=== PATIENT | female | born 1980 | race Caucasian/White ===

== ENCOUNTER → 2018-04-08 | Outpatient (CLI) | payer OTHER ==
[~2018-04-08] MED LIST: ACET-1718 PO; FLU150 PO; FLUC150T40 PO; IBU600 PO; IBU800 PO; IBUP800T37 PO; MET2 PO; PREN-67 PO; PREN-85 PO
[2018-04-08 08:53] LABS: LDL CHOLESTEROL 91 mg/dl
== END ==
LOC: LAB 08:14
PROVIDERS: ATTEND Obstetrics & Gynecology
DX: Z01.419 Encounter for gynecological examination (general) (routine) without abnormal findings (principal)
CPT/HCPCS: 36415; 82040; 82247; 82310; 82374; 82435; 82465; 82565; 82947; 83718; 84075; 84132; 84155; 84295; 84443; 84450; 84460; 84478; 84520; 85027

== ENCOUNTER → 2018-05-17 | Outpatient (CLI) | payer OTHER ==
[~2018-05-17] MED LIST changes: +CLOB15OI16 TP; +ITRA200T PO
== END ==
LOC: LAB 13:18
PROVIDERS: ATTEND Student in an Organized Health Care Education/Training Program
DX: B37.49 Other urogenital candidiasis (principal)
CPT/HCPCS: 87070; 87252

== ENCOUNTER → 2018-11-05 | Outpatient (CLI) | payer OTHER ==
[~2018-11-05] MED LIST changes: +ACYC-50 PO; +SULF-198 PO
== END ==
LOC: LAB 09:26
PROVIDERS: ATTEND Advanced Practice Midwife
DX: R30.0 Dysuria (principal)
CPT/HCPCS: 87077; 87088; 87186

== ENCOUNTER → 2019-01-05 | Outpatient (CLI) | payer OTHER ==
[~2019-01-05] MED LIST changes: +OMEP-137 PO; +PANT40TA65 PO
[2019-01-05 16:44] LABS: PLATELET COUNT, AUTOMATED 296 K/uL (150-450)
== END ==
LOC: LAB 16:10
PROVIDERS: ATTEND Internal Medicine
DX: R10.9 Unspecified abdominal pain (principal); K29.70 Gastritis, unspecified, without bleeding
CPT/HCPCS: 36415; 82040; 82150; 82247; 82310; 82374; 82435; 82565; 82947; 83036; 83690; 84075; 84132; 84155; 84295; 84443; 84450; 84460; 84520; 84702; 84703; 85025; 86677

== ENCOUNTER → 2019-03-11 | Outpatient (CLI) | payer OTHER | LOC: LAB 09:26 | PROVIDERS: ATTEND Advanced Practice Midwife | DX: N89.8 Other specified noninflammatory disorders of vagina (principal) | CPT/HCPCS: 87070; 87210 ==